=== PATIENT | female | born 1990 | race Hispanic/Latino ===

== ENCOUNTER 2020-07-22 12:15 | Inpatient (IN) | payer MEDICAID ==
[~2020-07-22] VITALS: Ht 162.6 cm; Wt 68.9 kg
[~2020-07-22 12:15] MED LIST: PREN-196 PO
[2020-07-22] MEDS ORDERED: LACTATED RINGERS 1000ML 1,000 ML IV ONE (12:48)
[2020-07-22 12:58] LABS: HEMATOCRIT 35.8 % (36-48); MEAN CORPUSCULAR HEMOGLOBIN 29.7 pg (27.0-33.0); MEAN CORPUSCULAR VOLUME 90.2 fL (79-99); RED BLOOD CELL COUNT(AUTO) 3.97 MIL/uL (4.00-5.50); RED CELL DISTRIBUTION WIDTH 13.6 % (11.0-15.5); WHITE BLOOD COUNT (AUTO) 7.7 K/uL (4.8-10.8)
[2020-07-22 13:20] LABS: APPEARANCE,URINE Clear (CLEAR); BILIRUBIN,URINE Negative (NEGATIVE); COLOR,URINE Yellow (YELLOW); GLUCOSE, URINE (UA) Negative (NEGATIVE); KETONES,URINE Negative (NEGATIVE); LEUKOCYTE ESTERASE ,URINE Large (NEGATIVE); NITRATE,URINE Negative (NEGATIVE); OCCULT BLOOD,URINE Negative (NEGATIVE); PROTEIN,URINE Negative (NEGATIVE); UROBILINOGEN,URINE 0.2 mg/dL (0.2-1.0)
[2020-07-22 14:04] LABS: RBC,URINE 0-1 /HPF (0-1)
[2020-07-22 14:05] LABS: BACTERIA,URINE Few /HPF (None Seen)
[2020-07-22] MEDS ORDERED: NALOXONE HCL 0.4 MG/1 ML ML IV PRN (15:30)
[2020-07-22] MEDS ORDERED: LACTATED RINGERS 500 ML 500 ML IV PRN (15:30)
[2020-07-22] MEDS ORDERED: EPHEDRINE SULFATE 50 MG/ML AMPULE IVP PRN (15:30)
[2020-07-22] MEDS ORDERED: PROMETHAZINE HCL 25 MG/ML 1ML AMPULE IM SCH (15:30)
[2020-07-22] MEDS ORDERED: MEPERIDINE-PF 50 MG/ML SYG IVP ONE (15:30)
[2020-07-22] MEDS: LACTATED RINGERS 1000ML 1,000 ML IV PRN (19:33)
[2020-07-23] MEDS: LACTATED RINGERS 1000ML 1,000 ML IV PRN (03:06)
[2020-07-23 08:15] LABS: HEPATITIS Bs ANTIGEN SCREEN P Negative (Negative)
[2020-07-23] MEDS ORDERED: OXYTOCIN-LR 20 UNITS/1000 ML 1,000 ML IV SCH (08:15)
[2020-07-23] MEDS ORDERED: MEPERIDINE-PF 50 MG/ML SYG ONE (10:39)
[2020-07-23] MEDS ORDERED: ACETAMINOPHEN 325 MG TAB PO PRN (13:00)
[2020-07-23] MEDS ORDERED: LANOLIN 30GM OINTMENT TP PRN (13:00)
[2020-07-23] MEDS ORDERED: DIPH,PERTUSS(ACELL),TET VAC/PF 0.5 ML VIAL IM PRN (13:00)
[2020-07-23] MEDS ORDERED: ACETAMINOPHEN WITH CODEINE 1 TAB TAB PO PRN (13:00)
[2020-07-23] MEDS ORDERED: MEASLES/MUMPS/RUBELLA VACCINE, LIVE 0.5 ML/VIAL SQ PRN (13:00)
[2020-07-23] MEDS ORDERED: BENZOCAINE/LANOLIN/ALOE VERA 60 ML AEROSOL TP PRN (13:00)
[2020-07-23] MEDS ORDERED: WITCH HAZEL 1 PAD TP PRN (13:00)
[2020-07-23 14:40] VITALS: BP 111/64
[2020-07-23] MEDS ORDERED: PNV1TABL17 PO (15:03)
[2020-07-23 20:00] VITALS: BP 114/72
[2020-07-23] MEDS: DOCUSATE SODIUM 100 MG CAP PO SCH (21:17)
[2020-07-24 03:50] VITALS: BP 98/61
[2020-07-24] MEDS: IBUPROFEN 600 MG TABLET PO PRN ×2 (04:26→11:45)
[2020-07-24 06:50] VITALS: BP 101/61
[2020-07-24] MEDS: DOCUSATE SODIUM 100 MG CAP PO SCH (09:19)
[2020-07-24 11:10] VITALS: BP 106/71
== END 2020-07-24 14:50 | disposition home or self-care (01) | DRG 560 ==
LOC: LDH 12:15 → OBSVTOIN 12:15 → WSH 07-23 14:35
PROVIDERS: ADMIT Specialist; ATTEND Specialist
PROC: 10907ZC Drainage of Amniotic Fluid, Therapeutic from Products of Conception, Via Natural or Artificial Opening (ICD-10-PCS; principal; 2020-07-23)
PROC: 10D07Z6 Extraction of Products of Conception, Vacuum, Via Natural or Artificial Opening (ICD-10-PCS; 2020-07-23)
PROC: 0W8NXZZ Division of Female Perineum, External Approach (ICD-10-PCS; 2020-07-23)
PROC: 3E0234Z Introduction of Serum, Toxoid and Vaccine into Muscle, Percutaneous Approach (ICD-10-PCS; 2020-07-23)
PROC: 3E0134Z Introduction of Serum, Toxoid and Vaccine into Subcutaneous Tissue, Percutaneous Approach (ICD-10-PCS; 2020-07-23)
DX: O76 Abnormality in fetal heart rate and rhythm complicating labor and delivery (principal); Z3A.38 38 weeks gestation of pregnancy; Z37.0 Single live birth; Z23 Encounter for immunization
CPT/HCPCS: 36415; 81001; 85027; 86592; 86850; 86900; 86901; 87088; 87340; A4351; G0378; J2175; J2590; J7120

== ENCOUNTER 2022-08-16 14:57 | Emergency (ER) | payer MEDICAID ==
[~2022-08-16] VITALS: Ht 162.6 cm; Wt 72.6 kg
[~2022-08-16 14:57] MED LIST changes: +PNV1TABL17 PO
[2022-08-16 15:45] LABS: APPEARANCE,URINE CLOUDY (CLEAR); BILIRUBIN,URINE NEGATIVE (NEGATIVE); COLOR,URINE YELLOW (YELLOW); GLUCOSE, URINE (UA) NEGATIVE (NEGATIVE); KETONES,URINE NEGATIVE (NEGATIVE); LEUKOCYTE ESTERASE ,URINE NEGATIVE Leu/uL (NEGATIVE); NITRATE,URINE NEGATIVE (NEGATIVE); OCCULT BLOOD,URINE NEGATIVE (NEGATIVE); PH,URINE 7.5 (5.0-8.0); PROTEIN,URINE NEGATIVE (NEGATIVE)
[2022-08-16 15:55] LABS: BACTERIA,URINE RARE /HPF (None Seen); MUCUS,URINE RARE LPF (None Seen); SQUAMOUS EPITHELIAL CELL,UR MOD /HPF (0-2); YEAST,URINE BUDDING FEW /HPF (None Seen)
[2022-08-16 16:06] LABS: BASOPHILS % (AUTO) 0.9 % (0.0-5.0); EOSINOPHILS % (AUTO) 2.2 % (0.0-8.0); HEMATOCRIT 40.6 % (36-48); MEAN CORPUSCULAR HEMOGLOBIN 31.1 pg (27.0-33.0); MEAN CORPUSCULAR HGB CONC 33.7 g/dL (32.0-36.0); MEAN CORPUSCULAR VOLUME 92.3 fL (79-99); MONOCYTES % (AUTO) 14.2 % (3.0-13.0); NEUTROPHILS % (AUTO) 49.5 % (40.0-77.0); PLATELET COUNT (AUTO) 255 K/uL (130-400); WHITE BLOOD COUNT (AUTO) 4.6 K/uL (4.8-10.8)
[2022-08-16 16:10] LABS: CREATININE 0.7 mg/dL (0.5-1.5); POTASSIUM 3.8 mmol/L (3.5-5.1)
[2022-08-16 16:14] LABS: ALBUMIN 4.3 g/dL (3.5-5.0); TOTAL PROTEIN, SERUM 7.4 g/dL (6.0-8.3)
[2022-08-16 17:52] VITALS: BP 94/58
[2022-08-16] MEDS ORDERED: NAPR375T6 PO (18:53)
== END 2022-08-16 19:09 | disposition home or self-care (01) ==
LOC: EDH 14:57
DX: N20.0 Calculus of kidney (principal); R10.32 Left lower quadrant pain; Z79.899 Other long term (current) drug therapy
CPT/HCPCS: 36415; 74176; 80053; 81001; 82270; 84703; 85025